=== PATIENT | female | born 1975 | race Two or more races ===

== ENCOUNTER 2017-07-13 08:33 | Emergency (ER) | payer BC ==
[~2017-07-13] VITALS: Ht 165.1 cm; Wt 83.4 kg
[2017-07-13] MEDS ORDERED: KETOROLAC 30 MG/1 ML ONE (09:25)
[2017-07-13] MEDS ORDERED: DIPHENHYDRAMINE 50 MG/ML, 1ML ONE (09:26)
[2017-07-13] MEDS ORDERED: PROCHLORPERAZINE 5 MG/ML, 2ML ONE (09:26)
[2017-07-13] MEDS ORDERED: PROCHLORPERAZINE 5 MG/ML, 2ML IVPush ONE (09:30)
[2017-07-13] MEDS ORDERED: DIPHENHYDRAMINE 50 MG/ML, 1ML IVPush ONE (09:30)
[2017-07-13] MEDS ORDERED: KETOROLAC 30 MG/1 ML IVPush ONE (09:30)
[2017-07-13] MEDS ORDERED: SODIUM CHLORIDE FLUSH 10ML SYR IVF ONE (09:30)
[2017-07-13] MEDS ORDERED: SODIUM CHLORIDE 0.9% 1,000ML IVBOLUS ONE (09:30)
[2017-07-13 10:48] VITALS: BP 138/70
== END 2017-07-13 10:51 | disposition home or self-care (01) ==
LOC: ED 09:42
DX: G43.009 Migraine without aura, not intractable, without status migrainosus (principal)
CPT/HCPCS: 70450; 93005; 96361; 96374; 96375; 99284; J0780; J1200; J1885; J7030